=== PATIENT | female | born 1945 | race Caucasian/White ===

== ENCOUNTER → 2017-12-17 | Outpatient (CLI) | payer OTHER ==
[~2017-12-17] MED LIST: BENICAR; DILANTIN100 MG PO; EFFEXOR; PROTONIX40 MG PO; TYLENOL #3; VOLTAREN XR100 MG PO
== END | disposition home or self-care (01) ==
DX: M17.11 Unilateral primary osteoarthritis, right knee (principal); R26.2 Difficulty in walking, not elsewhere classified; M25.561 Pain in right knee; M25.661 Stiffness of right knee, not elsewhere classified; Z74.1 Need for assistance with personal care; M62.81 Muscle weakness (generalized)
CPT/HCPCS: 97161 GP; 97165 GO; 97530 GP; 97535 GO; G8978 GP; G8979 GP; G8980 GP; G8987 GO; G8988 GO; G8989 GO

== ENCOUNTER 2018-02-03 10:30 | Day surgery (SDC) | payer OTHER ==
[~2018-02-03] VITALS: Ht 167.6 cm; Wt 74.8 kg
[~2018-02-03 10:30] MED LIST changes: +MEVACOR40 MG PO; +MOBIC7.5 MG PO; +XANAX0.25 MG PO; +ZOLOFT100 MG PO
[2018-02-03 11:00] VITALS: BP 108/70
[2018-02-03 16:35] VITALS: BP 122/71
[2018-02-03 17:26] VITALS: BP 119/69
== END 2018-02-03 17:40 | disposition home or self-care (01) ==
LOC: SDC 10:30
PROC: 0QSL04Z Reposition Right Tarsal with Internal Fixation Device, Open Approach (ICD-10-PCS; principal; 2018-02-03)
DX: S92.251A Displaced fracture of navicular [scaphoid] of right foot, initial encounter for closed fracture (principal); X58.XXXA Exposure to other specified factors, initial encounter; I10 Essential (primary) hypertension; E78.00 Pure hypercholesterolemia, unspecified; F41.9 Anxiety disorder, unspecified
CPT/HCPCS: 73630; 76000; C1713; J0690; J1100; J1885; J2250; J2405; J2795; J3010; S0020